=== PATIENT | female | born 1965 | race Two or more races ===

== ENCOUNTER 2020-07-05 05:53 | Day surgery (SDC) | payer OTHER ==
[~2020-07-05 05:53] MED LIST: CRESTOR10 MG PO; HYZAAR 100-251 EACH PO; JANUMET XR 50-1 EAC1 PO; ROCALTROL0.25 MCG PO; SYNTH PO; TENORMIN50 M1 PO; VITAMIN C PO; [UNRECOGNIZED DRUG - OTHER] PO
[2020-07-05] MEDS ORDERED: MORGIDOX100 MG PO (12:02)
[2020-07-05] MEDS ORDERED: NAPR500T14 PO (12:04)
[2020-07-05] MEDS ORDERED: NASAL MIST126 ML NASAL (12:04)
== END 2020-07-05 15:35 | disposition home or self-care (01) ==
LOC: CIR.AMB 05:53 → AMB-ENDOS 10:15 → CIR.AMB 10:15
PROVIDERS: ATTEND Obstetrics & Gynecology
DX: D25.0 Submucous leiomyoma of uterus (principal); N84.0 Polyp of corpus uteri; Z20.822 Contact with and (suspected) exposure to COVID-19